=== PATIENT | male | born 1985 | race Caucasian/White ===

== ENCOUNTER 2020-11-08 22:07 | Emergency (ER) | payer BC, SELFPAY ==
[2020-11-09 00:18] VITALS: BP 125/65; PULSE 102; RESP 15; TEMP 36.6; O2SAT 98; BMI 20.5
--- NOTE | 2020-11-09 01:36 | CT_ITS ---
PROCEDURE: CT ABDOMEN PELVIS W CON CLINICAL INDICATION: abd pain Abdominal pain and diarrhea with vomiting COMPARISON: CT ABDPELW/O CT ABD PELVIS W/O CONTRAST from 10/02/2015 TECHNIQUE: IV Contrast: 75ML Isovue 370 Oral Contrast None Axial images obtained with sagittal and coronal reformats. All CT scans at the facility use one or more dose reduction, viz: automated exposure control, ma/kV adjustment per patient size (including targeted exams where dose is matched to indication, i.e. head), or iterative reconstruction technique. FINDINGS: LOWER THORAX: No acute finding ABDOMEN & PELVIS: The liver, spleen, adrenal glands, pancreas, and kidneys have an unremarkable appearance. There are multiple fluid-filled dilated loops of small bowel without obvious transition point. Air-fluid level also noted in stomach. The transverse portion of the duodenum is fluid-filled and mildly dilated at 2.8 cm with air-fluid levels. There is suggestion of some thickening of the jejunum. Prior appendectomy. Urinary bladder wall appears slightly thickened. There is also thickening of the descending and sigmoid colon. No localized fluid collection is evident. Degenerative disc disease is present at L5-S1. IMPRESSION: Multiple fluid-filled loops of small bowel with mild distention of the duodenum and mild thickened appearance of the jejunum. There is also some thickening of the descending and sigmoid colon. Enterocolitis with ileus is a consideration. Please correlate with clinical parameters. Dictated by: Singh Gamez MD 11/09/2020 06:07 Singh Gamez MD in [facility] 11/09/2020 06:07
[2020-11-09 01:45] LABS: Potassium 3.5 mmoL/L (3.5-5.1); Sodium 133 mmol/L (136-145)
[2020-11-09 01:46] LABS: Chloride 100 mmol/L (98-107)
[2020-11-09 01:48] LABS: Alanine Aminotransferase 101 U/L (12-78); Alkaline Phosphatase 126 U/L (38-126); Amylase 61 U/L (30-110); Anion Gap 9.5 mEq/L (5-15); Aspartate Amino Transferase 250 U/L (17-59); Bilirubin,Direct 0.5 mg/dl (0.0-0.4); Bilirubin,Indirect 0.7 mg/dL (0.0-0.9); Bilirubin,Total 1.2 mg/dl (0.2-1.3); Bilirubin,Unconjugated 0.7 mg/dL (0.0-1.1); Blood Urea Nitrogen 21 mg/dl (9-20); Calcium 9.6 mg/dl (8.4-10.2); Carbon Dioxide 27 mmol/L (22.0-30.0); Creatinine Clearance Estimated 64 mL/min (50-200); Estimated Glomerular Filt Rate 58 ml/min (>60); GFR (African American) 70 ML/MIN (>60); Glucose 122 mg/dl (74-100); Lipase 71 U/L (23-300)
[2020-11-09 01:49] LABS: Albumin Level 4.2 g/dl (3.5-5.0); Total Protein,Serum 7.6 g/dl (6.3-8.2)
[2020-11-09 01:51] LABS: Basophils % 0.2 % (0.1-2.0); Eosinophils % 0.8 % (0.1-12.0); Hematocrit 42.4 % (42.0-52.0); Hemoglobin 13.8 g/dL (14.1-18.0); Lymphocytes # 0.2 K/mm3 (0.7-4.5); Mean Corpuscular HGB Conc 32.5 g/dL (31.8-35.4); Mean Platelet Volume 8.7 fl (7.4-10.4); Monocytes # 0.1 K/mm3 (0.1-1.0); Neutrophils # 4.7 K/mm3 (1.8-7.8); Neutrophils % 93.9 % (37.0-80.0); Platelet Count 141 K/mm3 (142-424); Red Blood Count 4.76 M/mm3 (4.60-6.20); Red Cell Distribution Width 13.2 % (11.5-17.5)
[2020-11-09 01:54] LABS: MANUAL DIFFERENTIAL MANUAL DIFFERENTIAL (MANUAL DIFF)
[2020-11-09 02:37] LABS: Eosinophils % 2 % (0-3); Lymphocytes % 4 % (10-50); Monocytes % 1 % (2-9); Neutrophils % 93 % (42-76); Platelet Estimate Normal; RBC Morphology Normal; Total Cells Counted 100
[2020-11-09 02:49] LABS: Microscopic, Urine URINE MICROSCOPIC (MICROSCOPIC)
[2020-11-09 02:51] LABS: Appearance,Urine CLEAR (Clear); Bilirubin,Urine Negative (Negative); Blood, Urine Negative (Negative); Color,Urine YELLOW (Yellow); Glucose,Urine (UA) Negative (Negative); Ketones,Urine Negative (Negative); Leukocyte Esterase,Urine Negative (Negative); Nitrate,Urine POSITIVE (Negative); Protein,Urine 1+ (Negative); Specific Gravity, Urine 1.015 (1.005-1.030); Urobilinogen,Urine 0.2 EU/dl (0.2)
[2020-11-09 03:08] LABS: Bacteria,Urine 1+ /lpf; Mucus,Urine 1+ /lpf
[2020-11-09 03:53] VITALS: BP 109/68; PULSE 107; O2SAT 99
[2020-11-09 04:00] VITALS: BP 121/71; O2SAT 99
[2020-11-09 04:16] VITALS: O2SAT 97
[2020-11-09 04:30] VITALS: BP 108/72; PULSE 110; O2SAT 99
--- NOTE | 2020-11-09 05:48 | [facility].EDNVD ---
ED Disposition Clinical Impression: Ileus, IVDU (intravenous drug user) Disposition: Home, Self-Care Condition on Discharge: Good Instructions: DI for Drug or Alcohol Withdrawal Additional Instructions: fluids and see pcp and consider drug rehab Referrals: PCP,No [Primary Care Provider] - - Critical Care Critical Care Time: No Attestation: On 11/08/20, the high probability of a clinically significant, sudden or life threatening deterioration of the following system(s) required my full and direct attention, intervention and personal management. The time I documented below is in addition to time spent performing reported procedures but includes the following listed in this critical care notation. Medical Decision Making - Medical Records Medical records reviewed: Yes: I reviewed the patient's medical records. - Natalio Inquiry Pt receiving controlled substance: No Vital Signs: 11/09/20 00:18 11/09/20 03:53 11/09/20 04:00 Temperature 98 F Temperature Source Oral Pulse Rate 107 H Pulse Rate [Right Brachial] 102 H Respiratory Rate 15 Blood Pressure 109/68 L 121/71 Blood Pressure [Right Arm] 125/65 Blood Pressure Mean 75 79 Blood Pressure Mean [Right Arm] 85 Blood Pressure Source [Right Arm] Automatic Cuff Blood Pressure Position [Right Arm] Sitting 02 Sat by Pulse Oximetry 98 99 99 Oxygen Delivery Method Room Air 11/09/20 04:16 11/09/20 04:30 Temperature Temperature Source Pulse Rate 110 H Pulse Rate [Right Brachial] Respiratory Rate Blood Pressure 108/72 L Blood Pressure [Right Arm] Blood Pressure Mean 89 Blood Pressure Mean [Right Arm] Blood Pressure Source [Right Arm] Blood Pressure Position [Right Arm] 02 Sat by Pulse Oximetry 97 99 Oxygen Delivery Method - Lab Data Lab results reviewed: Yes: I reviewed the patient's lab results. Lab Results 11/09/20 00:15: WBC 5.0, RBC 4.76, Hgb 13.8 L, Hct 42.4, MCV 89.0, MCH 29.0, MCHC 32.5, RDW 13.2, Plt Count 141 L, MPV 8.7, Neut % (Auto) 93.9 H, Lymph % (Auto) 4.0 L, [place] % (Auto) 1.0 L, Eos % (Auto) 0.8, Baso % (Auto) 0.2, Neut # (Auto) 4.7, Lymph # (Auto) 0.2 L, [place] # (Auto) 0.1, Eos # (Auto) 0.0, Baso # (Auto) 0.0, Total Counted 100, Neutrophils % (Manual) 93 H, Lymphocytes % (Manual) 4 L, Monocytes % (Manual) 1 L, Eosinophils % (Manual) 2, Platelet Estimate Normal, RBC Morphology Normal 11/09/20 00:15: Sodium 133 L, Potassium 3.5, Chloride 100, Carbon Dioxide 27, Anion Gap 9.5, BUN 21 H, Creatinine 1.40 H, Estimated Creat Clear 64, Estimated GFR 58 L, Est GFR ( Amer) 70, Glucose 122 H, Calcium 9.6, Total Bilirubin 1.2, Direct Bilirubin 0.5 H, Conjugated Bilirubin 0.0, Indirect Bilirubin 0.7, Unconjugated Bilirubin 0.7, AST 250 H, ALT 101 H, Alkaline Phosphatase 126, Total Protein 7.6, Albumin 4.2, Amylase 61, Lipase 71 11/09/20 02:30: Urine Color Yellow, Urine Appearance Clear, Urine pH 6.0, Ur Specific [place] 1.015, Urine Protein 1+, Urine Glucose (UA) Negative, Urine Ketones Negative, Urine Blood Negative, Urine Nitrate Positive, Urine Bilirubin Negative, Urine Urobilinogen 0.2, Ur Leukocyte Esterase Negative, Urine WBC 3-5, Ur Squamous Epith Cells 3-5, Urine Bacteria 1+, Hyaline Casts 3-5, Urine Mucus 1+ Result diagrams: 11/09/20 00:15 11/09/20 00:15 Orders (Tests/Meds): ED MEDICATIONS Generic Name Dose Route Start Last Admin Trade Name Freq PRN Reason Stop Dose Admin Sodium Chloride 1,000 mls @ 999 mls/hr 11/09/20 01:45 11/09/20 05:56 Sod Chlor 0.9% 1000ml Bag IV 11/09/20 02:45 999 mls/hr .Q1H1M CHAYITO Administration Sodium Chloride 1,000 mls @ 999 mls/hr 11/09/20 06:00 11/09/20 05:56 Sod Chlor 0.9% 1000ml Bag IV 11/09/20 07:00 Not Given .Q1H1M CHAYITO Discontinued Medications Generic Name Dose Route Start Last Admin Trade Name Freq PRN Reason Stop Dose Admin Iopamidol 70 ml 11/09/20 02:13 11/09/20 02:14 Iopamidol-370 (76%);100ml Bottle IV 11/09/20 02:14 7
[2020-11-09 06:21] VITALS: BP 108/72; PULSE 110; RESP 16; TEMP 36.6; O2SAT 97
[2020-11-09 07:12] LABS: Benzodiazepines Screen,Urine Negative ng/ml (<200)
[2020-11-09 07:14] LABS: Barbiturates Screen,Urine Negative ng/ml (<200)
[2020-11-09 07:15] LABS: Opiate Screen,Urine Positive ng/ml (<300)
[2020-11-09 07:16] LABS: Phencyclidine Screen,Urine Negative ng/ml (<25)
[2020-11-09 07:17] LABS: Cannabinoid Screen,Urine Negative ng/ml (<50); Cocaine Screen,Urine Negative ng/ml (<300)
[2020-11-09 07:18] LABS: Methadone Screen,Urine Negative ng/ml (<300)
[2020-11-09 07:51] LABS: Amphetamine/Metha Screen,Urine Positive ng/ml (<1000)
== END 2020-11-09 06:23 | disposition home or self-care (01) ==
PROVIDERS: Emergency Provider Emergency Medicine
DX: K56.7 Ileus, unspecified (principal); F19.90 Other psychoactive substance use, unspecified, uncomplicated
CPT/HCPCS: 74177; 80048; 80076; 80305; 81001; 82150; 83690; 85007; 85025; 96375; 99283; J2405; Q9967